=== PATIENT | female | born 1975 | race Caucasian/White ===

== ENCOUNTER 2016-11-29 13:36 | Inpatient (IN) | payer OTHER ==
[~2016-11-29] VITALS: Ht 167.6 cm; Wt 90.6 kg
[~2016-11-29 13:36] MED LIST: CELEXA20 MG PO; CITALOPRAM HBR40 MG PO; FLEXERIL10 MG PO; INTRINSI B12-F1 EACH PO; IRON18 MG; KLONOPIN0.5 M1 PO; MOTRIN800 MG PO; NAPROSYN500 MG PO; OMEPRAZOLE20 MG PO; PROTONIX40 MG PO; ROZEREM8 MG PO; SINEQUAN10 MG PO; SUBOXONE 8 M1 TABLET SL; SUBOXONE PO; VENLAFAXINE HCL75 M3 PO; VIVITROL380 MG/3.4 IM
[2016-11-29 20:19] LABS: HEMATOCRIT 36.3 % (36.0-46.0); MCH 25.2 PG (29.0-34.0); MCHC 31.1 G/DL (30.0-36.0); MCV 80.8 FL (83-99); PLATELET COUNT 298 K/uL (156-360); RBC DIS.WIDTH-CV 18.6 % (11.8-14.6); RBC DIS.WIDTH-SD 53.4 % (39-53); RED BLOOD COUNT 4.49 M/uL (3.80-5.20); WHITE BLOOD COUNT 9.7 K/uL (4.1-10.2)
[2016-11-29 20:27] LABS: CHLORIDE 105 mEq/L (99-109); POTASSIUM 3.8 mEq/L (3.7-5.4); SODIUM 141 mEq/L (136-147)
[2016-11-29 20:28] LABS: GLUCOSE 111 mg/dL (70-99)
[2016-11-29 20:30] LABS: ANION GAP 13 MEQ/L (2-14)
[2016-11-29 20:31] LABS: SERUM ETHYL ALCOHOL < 10 mg/dL
[2016-11-29 20:32] LABS: GFR ESTIMATE (CALCULATED) > 59 mL/min/
[2016-11-29 20:33] LABS: UREA NITROGEN (BUN) 9 mg/dL (9-23)
[2016-11-29 20:44] LABS: QUANTITATIVE HCG < 4.0 MIU/ML
[2016-11-29 20:55] LABS: AMPHETAMINE NEGATIVE (500 ng/mL); BARBITURATES NEGATIVE (200 ng/mL); BENZODIAZEPINES NEGATIVE (150 ng/mL); COCAINE NEGATIVE (150 ng/mL); INTERNAL CONTROLS VALID? YES; METHADONE PRESUMPTIVE POSITIVE (200 ng/mL); METHAMPHETAMINE NEGATIVE (500 ng/mL); OPIATES (MORPHINE) NEGATIVE (100 ng/mL); OXYCODONE NEGATIVE (100 ng/mL); PHENCYCLIDINE NEGATIVE (25 ng/mL); PROPOXYPHENE NEGATIVE (300 ng/mL); THC CANNABINOIDS NEGATIVE (50 ng/mL); TRICYCLIC ANTIDEPRESSANTS NEGATIVE (300 ng/mL)
[2016-11-29] MEDS ORDERED: ACZONE60 G1 TP (22:37)
[2016-11-29] MEDS ORDERED: IRON325 M1 PO (22:37)
[2016-11-29] MEDS ORDERED: DAILY VALUE1 EACH PO (22:38)
[2016-11-29 23:57] VITALS: BP 116/62
[2016-11-30 00:09] VITALS: BP 116/62
[2016-11-30 07:49] VITALS: BP 90/54
[2016-11-30 12:12] VITALS: BP 116/59
[2016-11-30 15:38] VITALS: BP 86/54
[2016-11-30 17:09] VITALS: BP 99/62
[2016-12-01 07:29] VITALS: BP 78/45
[2016-12-01 10:42] VITALS: BP 100/65
[2016-12-01 15:42] VITALS: BP 87/49
[2016-12-01 19:25] VITALS: BP 100/64
[2016-12-02 07:47] VITALS: BP 110/56
[2016-12-02 16:00] VITALS: BP 90/52
[2016-12-03 07:51] VITALS: BP 74/40
[2016-12-03] MEDS ORDERED: EFFEXOR XR150 MG PO (09:38)
[2016-12-03] MEDS ORDERED: ROPINIROLE HCL1 MG PO (09:38)
[2016-12-03] MEDS ORDERED: HYDROXYZINE PAM25 MG PO (09:38)
[2016-12-03] MEDS ORDERED: ZOLPIDEM TARTRAT5 MG PO (09:38)
== END 2016-12-03 11:30 | disposition home or self-care (01) | DRG 885 ==
LOC: EME 13:36 → 1WEST 21:49 → EDOF 21:49 → 1WEST 21:49
DX: F33.9 Major depressive disorder, recurrent, unspecified (principal); F11.23 Opioid dependence with withdrawal; F41.9 Anxiety disorder, unspecified; G25.81 Restless legs syndrome; Z63.5 Disruption of family by separation and divorce; F17.200 Nicotine dependence, unspecified, uncomplicated; T40.1X1D Poisoning by heroin, accidental (unintentional), subsequent encounter; F19.10 Other psychoactive substance abuse, uncomplicated; Z98.84 Bariatric surgery status
CPT/HCPCS: 80048; 84702; 85027; 90839; 97150 GO; 97165 GO; 99281; 99285; G0480; Q0177